=== PATIENT | female | born 1960 | race Caucasian/White ===

== ENCOUNTER → 2020-01-01 13:26 | Outpatient (CLI) | payer OTHER, SELFPAY ==
--- NOTE | ~2020-01-01 | MR_ITS ---
EXAMINATION: MR shoulder RT wo con DATE: 01/01/2020 14:04 INDICATION: Chronic right shoulder pain. TECHNIQUE: Magnetic resonance imaging (MRI) of the right shoulder was performed without intravenous c ontrast. Sequences included axial PD-weighted FS FSE, coronal oblique PD-weighted FS FSE and T2-weigh luis enrique FS FSE, and sagittal oblique T2-weighted FS FSE and T1-weighted FSE. COMPARISON: None. FINDINGS: Coracoacromial arch: The acromion undersurface is curved in morphology (type II). There is severe acromioclavicular joint osteoarthritis including inferiorly directed osteophytes. There is mild subacromial/subdeltoid bursit is. Rotator cuff: There is a bursal sided partial-thickness tear of supraspinatus tendon measuring 6 mm anterior to pos terior by 10 mm proximal to distal by 70% tendon thickness. There is moderate infraspinatus tendinopa thy. Teres minor tendon is normal. There is mild subscapularis tendinopathy. There is mild fatty atro phy of teres minor muscle belly. Biceps tendon and glenoid labrum: Biceps tendon is in bicipital groove. Intra-articular biceps tendon is normal. There is a tear of sup erior labrum from 10:00 to 12:00 (SLAP tear). Fluid: There is no glenohumeral joint effusion. Bones/cartilage: Humeral head demonstrates marginal osteophytes. Humeral head cartilage is normal. There is partial-th ickness cartilage loss of superior and central glenoid with moderate subchondral edema-like marrow si gnal intensity. IMPRESSION: 1. Moderate rotator cuff tendinopathy with partial-thickness, bursal-sided tear of supraspinatus tend on. 2. Mild glenohumeral joint chondrosis. SLAP tear. 3. Severe acromioclavicular joint osteoarthritis. 4. Mild subacromial/subdeltoid bursitis. Reviewed, dictated and finalized at location A. IMPRESSION: 1. Moderate rotator cuff tendinopathy with partial-thickness, bursal-sided tear of supraspinatus tendon. 2. Mild glenohumeral joint chondrosis. SLAP tear. 3. Severe acromioclavicular joint osteoarthritis. 4. Mild subacromial/subdeltoid bursitis.
== END ==
PROVIDERS: Visit Provider Orthopaedic Surgery
DX: M19.011 Primary osteoarthritis, right shoulder (principal); M75.51 Bursitis of right shoulder; S43.431A Superior glenoid labrum lesion of right shoulder, initial encounter; X58.XXXA Exposure to other specified factors, initial encounter
CPT/HCPCS: 73221

== ENCOUNTER 2022-04-12 17:37 | Emergency (ER) | payer OTHER, SELFPAY ==
--- NOTE | ~2022-04-12 | XR_ITS ---
XR foot LT min 3V DATE: 04/12/2022 18:02 INDICATION: Injury to dorsal third, fourth and fifth metatarsal area, with bruising TECHNIQUE: 4 views of left foot COMPARISON: None FINDINGS: There is a minimally displaced linear oblique intra-articular fracture of the medial aspect of the base of the proximal phalanx of the fourth digit. Mild plantar calcaneal enthesopathy. Mild calcification of the distal Achilles tendon. No other fracture or dislocation or other significant bony abnormality is detected. IMPRESSION: Minimally displaced linear oblique intra-articular fracture of the medial base of the pro ximal phalanx of the fourth digit Reviewed, dictated and finalized at location A. IMPRESSION: Minimally displaced linear oblique intra-articular fracture of the medial base of the proximal phalanx of the fourth digit
[2022-04-12 17:49] VITALS: BP 94/57; PULSE 82; RESP 18; TEMP 36.8; O2SAT 100
--- NOTE | 2022-04-12 18:06 | ED.LOWEXIN ---
HPI - Extremity Injury (Lower) General Chief Complaint: Extremity Injury, Lower Stated Complaint: Left foot Pain Time Seen by Provider: 04/12/22 18:06 Source: patient Mode of arrival: ambulatory Limitations: no limitations History of Present Illness HPI Narrative: 61 yo F presents with pain to L 3rd, 4th toes. Reports around 11am today she hit her left foot on a metal chair while packing suitcases. Drove home several hours from [place]. Started to get swelling and bruising. Is concerned she has a fracture. Ambulatory with slight limp. All systems reviewed and negative except as noted above. Related Data Home Medications Medication Instructions Recorded Confirmed citalopram 20 mg tablet tablet 04/12/22 metformin 500 mg tablet tablet 04/12/22 04/12/22 Allergies Allergy/AdvReac Type Severity Reaction Status Date / Time No Known Allergies Allergy Verified 07/17/15 15:28 Review of Systems Review of Systems: CONSTITUTIONAL: Denies fever, chills, or sweats. EYES: Denies visual changes, redness, or discharge. ENT: Denies rhinorrhea, congestion, sore throat, or otalgia. CARDIOVASCULAR: Denies chest pain, palpitations, or edema. RESPIRATORY: Denies cough or dyspnea. GASTROINTESTINAL: Denies abdominal pain, nausea, vomiting, or diarrhea. GENITOURINARY: Denies dysuria or hematuria. SKIN: Denies rash or itching. MUSCULOSKELETAL: Denies back pain, joint pain, or myalgia. Reports pain and swelling to left third and fourth toes. NEUROLOGIC: Denies headache, numbness, or weakness. PSYCHIATRIC: Denies anxiety or depression. All other systems reviewed are negative, except as documented in HPI. PMFSH Comments At time of signature, agree with nursing past medical, surgical, social and family history. There is no relevant family history pertinent to the presenting complaint. Exam Narrative: GENERAL: This is a well-nourished, well-developed patient, in no apparent distress. HEAD: normocephalic, atraumatic. EYES: PERRL. Sclera clear/white. Vision is grossly intact. EARS: External ears normal NOSE: External nose normal NECK: Neck supple, non-tender without lymphadenopathy, masses or thyromegaly. CARDIOVASCULAR: Regular rate and rhythm without murmurs, gallops, or rubs. RESPIRATORY: Clear to auscultation. Breath sounds equal bilaterally. No wheezes, rales, or rhonchi. SKIN: warm, Dry, intact with no suspicious lesions or rash, good texture and turgor. NEURO: awake, alert, and oriented to person, place and time. There were no obvious focal neurologic abnormalities. EXTREMITIES: Tenderness to proximal aspect of third and fourth toe. Bruising noted. Mild swelling. Course Course Level of Care: Express Care Visit Vital Signs Vital signs: Vital Signs Temperature 36.8 C 04/12/22 17:49 Pulse Rate 82 04/12/22 17:49 Respiratory Rate 18 04/12/22 17:49 Blood Pressure 94/57 L 04/12/22 17:49 Pulse Oximetry 100 04/12/22 17:49 Oxygen Delivery Room Air 04/12/22 17:49 Temperature 36.8 C 04/12/22 17:49 Pulse Rate 82 04/12/22 17:49 Respiratory Rate 18 04/12/22 17:49 Blood Pressure 94/57 L 04/12/22 17:49 Pulse Oximetry 100 04/12/22 17:49 Oxygen Delivery Room Air 04/12/22 17:49 Reviewed MDM - Extremity Injury (Lower) MDM Narrative Medical decision making narrative: Discussed x-ray results with patient. Placed in postop shoe by EDGRA Verde. Referred to orthopedic for follow-up. Patient is aware of diagnosis, understands and agrees to treatment plan. Anticipatory guidance given. Patient agrees to follow-up as directed and is aware of reasons to seek care at the emergency department. Portions of this record may have been created with voice recognition software Differential Diagnosis Differential diagnosis: Likely fracture of toe Imaging Data My impression: Agree with radiologist Radiologist's impression: XR foot LT min 3V DATE: 04/12/2022 18:02 INDICATION: Injury to dorsal th
== END 2022-04-12 19:06 | disposition home or self-care (01) ==
PROVIDERS: Emergency Provider Nurse Practitioner Family; PCP Nurse Practitioner Family
DX: S92.512A Displaced fracture of proximal phalanx of left lesser toe(s), initial encounter for closed fracture (principal); W22.8XXA Striking against or struck by other objects, initial encounter; K21.9 Gastro-esophageal reflux disease without esophagitis
CPT/HCPCS: 73630; 99214; G0463

== ENCOUNTER → 2023-11-08 08:20 | Outpatient (CLI) | payer MEDICARE, OTHER, SELFPAY ==
--- NOTE | ~2023-11-08 | MR_ITS ---
MRI of the left shoulder Technique: Axial proton-density fat-sat images, coronal proton density fat-sat and T2 fat-sat images, and sagittal T1-weighted and T2 fat-sat images were acquired. Clinical History: Pain Findings: There is mild AC joint degenerative change. Cortical clavicular, coracoacromial, and coraco humeral ligaments are intact. Supraspinatus and infraspinatus tendons are intact, without partial or full-thickness tear. There is mild tendinosis. Subscapularis tendon is intact, with mild tendinosis. Tendon of long head of the bic eps is intact. No labral tear identified. Inferior glenohumeral ligament is intact. No degenerative change or effusion of the glenohumeral join t. No fluid distention of the subacromial/subdeltoid bursa. No muscle atrophy or edema. Impression: Rotator cuff tendinosis, without partial or full-thickness tear. Mild AC joint degenerative change. Reviewed, dictated and finalized at location . ATIENT ADMITTING CLERK Impression: Rotator cuff tendinosis, without partial or full-thickness tear. Mild AC joint degenerative change.
== END ==
PROVIDERS: PCP Nurse Practitioner Family; Visit Provider Orthopaedic Surgery
DX: M75.82 Other shoulder lesions, left shoulder (principal); M19.012 Primary osteoarthritis, left shoulder; G89.29 Other chronic pain
CPT/HCPCS: 73221